=== PATIENT | female | born 1965 ===

== ENCOUNTER 2022-03-09 07:12 | Day surgery (SDC) | payer OTHER ==
[~2022-03-09 07:12] MED LIST: AMLODIP PO; PREMARIN0.45 MG PO; PRILOSEC PO; SINGULAIR10 MG PO; VITAMIN D PO
[2022-03-09] MEDS ORDERED: POLY119PG PO (12:53)
[2022-03-09] MEDS ORDERED: NEURONTIN600 M1 PO (12:53)
[2022-03-09] MEDS ORDERED: PERCOCET 5-3251 EACH PO (12:53)
== END 2022-03-09 16:35 | disposition home or self-care (01) ==
LOC: CIR.AMB 07:12
PROVIDERS: ATTEND Surgery
DX: N83.8 Other noninflammatory disorders of ovary, fallopian tube and broad ligament (principal); N70.11 Chronic salpingitis; K43.2 Incisional hernia without obstruction or gangrene; I10 Essential (primary) hypertension; J45.909 Unspecified asthma, uncomplicated; G43.909 Migraine, unspecified, not intractable, without status migrainosus; E66.9 Obesity, unspecified
CPT/HCPCS: 49654; 58662; C1781